=== PATIENT | male | born 2000 | race Caucasian/White ===

== ENCOUNTER 2021-12-04 21:41 | Emergency (ER) | payer MEDICAID ==
[~2021-12-04] VITALS: Ht 172.7 cm; Wt 63.0 kg
[2021-12-04] MEDS ORDERED: SODIUM CHLORIDE 0.9% 1,000 ML IV ONE (22:00)
[2021-12-04] MEDS ORDERED: CEFAZOLIN 1000MG PREMIX 50 ML IV ONE (22:00)
[2021-12-04] MEDS ORDERED: TETANUS, DIPHTHERIA, PERTUSSIS VAC/PF 0.5ML (>10YR OLD) IM ONE (22:00)
[2021-12-04 23:06] LABS: HEMATOCRIT. 40.5 % (42.0-52.0); HEMOGLOBIN. 13.7 g/dL (14.0-18.0); MEAN CORPUSCULAR VOLUME 85.9 fL (80.0-94.0); MEAN PLATELET VOLUME 9.4 fl (7.4-10.4); PLATELET 207 x1000/uL (130-400); RED BLOOD CELL COUNT 4.71 mill/uL (4.7-6.1); RED CELL DISTRIBUTION WIDTH 13.5 % (11.6-14.6)
[2021-12-04 23:10] LABS: CHLORIDE 109 mEq/L (98-107)
[2021-12-04 23:12] LABS: INR 1.1; PROTHROMBIN TIME 11.4 sec (9.6-11.0)
[2021-12-04] MEDS ORDERED: TRANEXAMIC ACID 1,000 MG/10 ML TP ONE (23:30)
[2021-12-04] MEDS ORDERED: LIDOCAINE HCL/EPINEPHRINE 1%-EPI 1:100,000 20 ML VIAL INFIL ONE (23:30)
[2021-12-04 23:58] LABS: PLATELET ESTIMATE NORMAL
[2021-12-05 01:22] LABS: BASOPHILS % 0.4 % (0.0-2.0); HEMATOCRIT. 37.8 % (42.0-52.0); HEMOGLOBIN. 12.6 g/dL (14.0-18.0); LYMPHOCYTES % 8.3 % (20.0-50.0); MEAN CORPUSCULAR HEMOGLOBIN 28.8 pg (28.0-32.0); MEAN CORPUSCULAR VOLUME 85.8 fL (80.0-94.0); MEAN PLATELET VOLUME 8.7 fl (7.4-10.4); MONOCYTES % 5.5 % (2.0-8.0); NEUTROPHILS % 85.8 % (40.0-76.0); PLATELET 204 x1000/uL (130-400); RED CELL DISTRIBUTION WIDTH 13.3 % (11.6-14.6)
[2021-12-05 02:00] VITALS: BP 124/71
[2021-12-05] MEDS ORDERED: IBUP-2029 MT (02:49)
[2021-12-05] MEDS ORDERED: CEPH500C2 MT (02:49)
== END 2021-12-05 03:07 | disposition home or self-care (01) ==
LOC: ER 21:41
DX: S82.301A Unspecified fracture of lower end of right tibia, initial encounter for closed fracture (principal); I49.9 Cardiac arrhythmia, unspecified; W34.00XA Accidental discharge from unspecified firearms or gun, initial encounter; Y93.89 Activity, other specified; Y92.89 Other specified places as the place of occurrence of the external cause; Y99.8 Other external cause status
CPT/HCPCS: 12011; 36415; 72170; 73590; 73600; 73630; 80053; 83605; 85025; 85610; 86850; 86900; 86901; 90471; 90715; 93005; 96361; 96365; 99285; J0690; J3490; J7030; 71045